=== PATIENT | female | born 1965 ===

== ENCOUNTER 2017-05-19 14:17 | Observation (INO) | payer SELFPAY ==
[2017-05-19] MEDS ORDERED: HYDROcodone/Acetaminophen 10/325 mg Tablet PO PRN (16:46)
[2017-05-19] MEDS ORDERED: Labetalol HCl 100 MG/20 ML VIAL SLOW IVP PRN (16:46)
[2017-05-19] MEDS ORDERED: HYDROcodone/Acetaminophen 5/325 mg Tablet PO PRN (16:46)
[2017-05-19] MEDS ORDERED: Ondansetron ODT 4 MG TAB PO PRN (16:46)
[2017-05-19] MEDS ORDERED: Acetaminophen 325 MG TAB PO PRN (16:46)
[2017-05-19 16:50] VITALS: BMI 33.3
[2017-05-19] MEDS ORDERED: Enoxaparin Sodium 40 MG/0.4 ML SYRINGE SC SCH (17:15)
[2017-05-19 17:37] LABS: CKMB 0.8 ng/mL (0-6.6); Troponin I 0.032 ng/mL (< 0.028)
[2017-05-19] MEDS: Nitroglycerin 2% Ointment 1 INCH/1 GM Packet TOP SCH ×2 (20:58→23:18)
[2017-05-19] MEDS: Famotidine 20 MG TAB PO SCH (21:01)
[2017-05-19] MEDS: Metoprolol Tartrate 25 MG TAB PO SCH (21:01)
[2017-05-20 01:12] LABS: CKMB 0.8 ng/mL (0-6.6); Troponin I 0.022 ng/mL (< 0.028)
[2017-05-20 04:50] VITALS: TEMP 98.7
[2017-05-20 05:10] LABS: Hemoglobin A1c 5.4 % (4.0-6.0)
[2017-05-20 05:19] LABS: #Basophils 0.1 thou/uL (0.0-0.2); #Eosinphils 0.1 thou/uL (0.0-0.7); #Lymphocytes 2.1 thou/uL (1.20-3.40); #Monocytes 0.6 thou/uL (0.11-0.59); #Neutrophils 3.6 thou/uL (1.40-6.50); %Basophils 1.4 % (0.0-1.0); %Eosinophils 2.1 % (0.0-10.0); %Monocytes 8.5 % (0.0-10.0); %Neutrophils 55.9 % (42.0-75.0); Hemoglobin 14.3 g/dL (12.0-16.0); Mean Corpuscular HGB CONC 32.6 g/dL (32.0-36.0); Mean Corpuscular Volume 95.1 fl (81.0-99.0); Mean Platelet Volume 7.2 fL (7.4-10.4); Platelet Count 329 thou/uL (130-400); RBC Distribution Width 11.2 % (11.5-14.5); White Blood Cell (WBC) Count 6.4 thou/uL (4.8-10.8)
[2017-05-20 05:37] LABS: Anion Gap 13 mmol/L (10-20); BUN (Urea Nitrogen) 18 mg/dL (9.8-20.1); Calc. Creatinine Clearance 106 mL/min (70-130); Calcium 9.6 mg/dL (7.8-10.44); Carbon Dioxide 28 mmol/L (22-29); Cardiac Risk 4.6 (Less than 4.5); Chloride 105 mmol/L (98-107); Cholesterol 206 mg/dl (< 200 Desired); Estimated GFR-MDRD 75; Glucose 91 mg/dL (70-105); HDL Cholesterol 45 mg/dL (>60 Neg Risk); LDL Cholesterol, Calculated 140 mg/dL; Magnesium 2.4 mg/dL (1.6-2.6); Potassium 4.6 mmol/L (3.5-5.1); Sodium 141 mmol/L (136-145); Triglycerides 104 mg/dL (Less than 150)
[2017-05-20] MEDS ORDERED: Enoxaparin Sodium 40 MG/0.4 ML SYRINGE SC SCH (09:00)
[2017-05-20] MEDS ORDERED: Aspirin 325 mg Enteric Coated Tablet PO SCH (09:00)
[2017-05-20] MEDS: Famotidine 20 MG TAB PO SCH (09:12)
[2017-05-20 09:23] LABS: CKMB 0.6 ng/mL (0-6.6); Troponin I 0.012 ng/mL (< 0.028)
--- NOTE | 2017-05-20 12:17 | NM ---
RADIONUCLIDE STRESS ONLY MYOCARDIAL PERFUSION SCAN WITH CT ATTENUATION CORRECTION AND SPECT IMAGING LEFT VENTRICULAR WALL MOTION EVALUATION AND EJECTION FRACTION: History: Chest pain. FINDINGS: On the stress images, no focal perfusion defect is apparent. Adenosine protocol was used. QGS analysi s of gated SPECT images shows no focal wall motion abnormalities. Ejection fraction is calculated at 51%. IMPRESSION: 1. Normal myocardial perfusion scan. No evidence of ischemia. 2. Borderline ejection fraction of 51%. No focal wall motion abnormalities are apparent. POS: EU[facility]
[2017-05-20] MEDS ORDERED: Amlodipine 10 MG TAB PO SCH (12:45)
[2017-05-20] MEDS: Metoprolol Tartrate 25 MG TAB PO SCH (12:45)
--- NOTE | 2017-05-20 13:06 | HP ---
DATE OF ADMISSION: 05/19/2017 PRIMARY CARE PHYSICIAN: None. TIME OF SERVICE 1620. CHIEF COMPLAINT: Chest pain. HISTORY OF PRESENT ILLNESS: Ms. Singh is a 51-year-old female with history of hypertension, pierce ry artery disease, hyperlipidemia, ongoing tobacco abuse and medical nonadherence, who presented to a outside Emergency Department in [place] with 2 week complaints of chest pain and shortness of b reath. She actually called EMS about 4 days prior to admission, was evaluated and refused transport, but today had increased chest pain and dyspnea on exertion, so called EMS. She was taken to the [facility] department in [place]. She was noted to have a blood pressure in the 180 systolic. Initi al set of cardiac biomarkers were negative. Labs were otherwise negative and we were called for dire ct admission for hypertensive urgency. She was given labetalol and nitro paste there in the emergency department with a normalization of her blood pressure. Her chest pain resolved. She had no fevers or chills. She had shortness of breath with the chest pain, but not anymore. She had nausea, but no vomiting, and no sweats. She describe s the pain as a squeezing sensation, heaviness in the center of her chest, worse, heavier or more in tense with deep inspiration. She does have a history of hypertension, is supposed to be on medications she does not even recall an d has not taken any medication over a year due to financial issues. The patient does have a history of coronary disease and was seen at a hospital in [place] back in 2009 or 2010 when she underwent a PTCA with ballooning, but no stent placement. No other current complaints. PAST MEDICAL HISTORY: 1. Hypertension. 2. Coronary artery disease. 3. Hyperlipidemia. 4. Tobacco abuse. 5. Noncompliance. PAST SURGICAL HISTORY: 1. PTCA 2009 or 2010 in [place]. 2. x2 remotely. 3. Cholecystectomy in 2004, laparoscopically. REGULAR HOME MEDICATIONS: None. ALLERGIES: NKDA. FAMILY HISTORY: Significant for dad who at age 57 with coronary disease, had his first heart at [facility] around the age of 50. SOCIAL HISTORY: Significant for 1 pack per day for 42 years and is ongoing. No alcohol, no IV drug use. She is currently unemployed, worked for [employer] until about 2 and a half months ago, but quit due to stress. REVIEW OF SYSTEMS: A 10-point review of systems was performed and is negative for all other systems except stated as per HPI. PHYSICAL EXAMINATION: VITAL SIGNS: Temperature on arrival here 97.8, pulse 87, blood pressure 141/95, respiratory rate 16, satting 98% on room air. GENERAL: She is awake. She is alert. She is oriented x3. She is a well-developed, obese white fem reno, appears to be in no acute distress. HEENT: Normocephalic, atraumatic. Pupils equal and react to light bilaterally, mucous membrane mois t. She had no visible lesions or thrush. NECK: Supple. She has no lymphadenopathy, JVD or thyromegaly, normal carotid upstrokes. There are no bruits. LUNGS: Clear. No wheezes, no rales, no rhonchi. No prolonged expiratory phase. CARDIOVASCULAR: Normal S1 and S2. No S3 or S4. No murmurs. ABDOMEN: Obese, it is nontender, nondistended. She has no hepatosplenomegaly. No rebound, rigidity or guarding. EXTREMITIES: Reveal no cyanosis, clubbing, no edema. SKIN: Warm, moist and well perfused. She has no rashes, no lesions. NEUROLOGIC: Cranial nerves II-XII were grossly intact. She has no focal neurologic deficits. Maria Teresa l speech pattern. 5/5 strength in all 4 extremities. MUSCULOSKELETAL: Normal to inspection. She has no inflamed joints. No palpable effusions. LABORATORY DATA: Sodium 139, potassium 4.2, chloride 103, bicarb 25, BUN 18, creatinine 0.8. Liver functions normal. White count of 8.1, hemoglobin 15, hematocrit 42, platelet count 327,000. BNP is 168, troponin I 0.0 11. CK 37, MB of 1.0. Her chest x-ray showed no acute cardiopulmonary disease. EKG showed sinus tachycardia, but otherwise no ischemic ST-T changes. ASSESSMENT AND PLAN: 1. Hypertensive urgency. She had elevated blood pressure with chest pain that resolved with normali zation of her blood pressure. We will get serial cardiac biomarkers. If these are negative we will get a nuclear stress test. 2. Hypertension, essential. Off medications. We will restart her on metoprolol, nitro paste and ad just medications as needed. 3. Presumed angina due to elevated blood pressure. We will see her cardiac biomarkers, place her on nitro paste, oxygen, metoprolol, and aspirin and serial biomarkers. Again, if these are negative, w kade will get a stress test in the morning. 4. Hyperlipidemia. We will check fasting lipid profile. 5. History of coronary artery disease. EKG negative to this date. Watch on telemetry. 6. Ongoing tobacco abuse, counseling.
--- NOTE | 2017-05-20 13:06 | DIS ---
DATE OF ADMISSION: 05/19/2017 DATE OF DISCHARGE: 05/20/2017 DISCHARGE DIAGNOSES: 1. Hypertensive urgency. 2. Stable angina. 3. Essential hypertension. 4. Coronary artery disease. 5. Hyperlipidemia, primary hypercholesterolemia. 6. Medical nonadherence. 7. Ongoing tobacco abuse. CONSULTATIONS: None. PROCEDURES: Nuclear stress test negative for inducible ischemia, negative for EKG changes. HISTORY AND PHYSICAL: Ms. Singh is a 51-year-old female with 2 weeks of off and on chest pain, wor se over the 24 hours prior to admission. On arrival to the outside ER, she had elevated blood pressu re and was put on nitro paste and labetalol. The chest pain resolved with normalization of her blood pressure. Initial labs negative, transferred here for further workup. HOSPITAL COURSE: The patient was accepted in direct transfer from [place]. On arrival vitals we re normal. She was continued on cardioprotective medication with beta bruna, nitro paste, oxygen, aspirin, and serial cardiac biomarkers were ordered. Her troponin did go from 0.11-0.03 and then vladimir n again. Her CK-MB remained normal. She overnight, had no further chest pain and was feeling better . On 05/20/2017, she underwent nuclear stress test that showed no areas of reversible ischemia and EF a round 51%. She was transitioned over to metoprolol, Norvasc, and atorvastatin with a baby aspirin da joel. She was discharged with outpatient followup. PHYSICAL EXAMINATION: The patient was seen and examined on the day of discharge. Discharge plan and disposition discussed with the patient and her face to face at bedside. DISCHARGE MEDICATIONS: 1. Atorvastatin 10 mg p.o. at bedtime. 2. Amlodipine 5 mg p.o. daily. 3. Metoprolol 25 mg p.o. b.i.d. 4. Aspirin 81 mg daily. FOLLOWUP APPOINTMENTS: 1. Primary care physician, she is to establish and see them as soon as possible. 2. Discharge activity per cardiopulmonary limits. DISCHARGE DIET: Heart healthy recommended. DISCHARGE CONDITION: Stable. DISPOSITION: To be discharged home via private vehicle. SPECIAL INSTRUCTIONS: Are to take her medicines as prescribed. She was placed on generic medicines that should be affordable.
[2017-05-20 13:39] VITALS: BP 129/87
[2017-05-20] MEDS ORDERED: ADENOSINE 60 MG/20 ML VIAL ONE (16:26)
[2017-05-20] MEDS ORDERED: Atorvastatin Calcium 10 MG TAB PO SCH (21:00)
[2017-05-21] MEDS ORDERED: Amlodipine 5 MG TAB PO SCH (09:00)
== END 2017-05-20 13:54 | disposition home or self-care (01) ==
LOC: PREOBSVTOIN 16:06 → 2SW 16:08
PROVIDERS: ADMIT Internal Medicine Infectious Disease; ATTEND Internal Medicine Infectious Disease
DX: I16.0 Hypertensive urgency (principal); I10 Essential (primary) hypertension; I25.119 Atherosclerotic heart disease of native coronary artery with unspecified angina pectoris; E78.00 Pure hypercholesterolemia, unspecified; F17.210 Nicotine dependence, cigarettes, uncomplicated; Z91.14 Patient's other noncompliance with medication regimen; Z79.899 Other long term (current) drug therapy; Z98.61 Coronary angioplasty status; Z90.49 Acquired absence of other specified parts of digestive tract; Z98.890 Other specified postprocedural states
CPT/HCPCS: 36415; 78452; 80048; 80061; 82553; 83036; 83735; 84484; 85025; 93017; 96372; A9500; G0378; J0153; J1650